=== PATIENT | male | born 1980 | race African-American/Black ===

== ENCOUNTER 2017-11-19 07:02 | Emergency (ER) | payer MEDICAID ==
[~2017-11-19] VITALS: Ht 177.8 cm; Wt 83.6 kg
[2017-11-19] MEDS ORDERED: DEXAMETHASONE 4 MG/ML, 5ML ONE (07:42)
[2017-11-19] MEDS ORDERED: DEXAMETHASONE 4 MG/ML, 1ML PO ONE (08:00)
[2017-11-19 08:27] LABS: BASOPHILS # (AUTO) 0.04 x10^3/uL (0-0.1); BASOPHILS % (AUTO) 1 % (0-1); EOSINOPHILS # (AUTO) 0.02 x10^3/uL (0-0.4); EOSINOPHILS % (AUTO) 0 % (1-7); LYMPHOCYTES # (AUTO) 1.49 x10^3/uL (1-3.4); LYMPHOCYTES % (AUTO) 20 % (22-44); MD NO; MEAN CORPUSCULAR HGB CONC 33.2 g/dL (33.2-36.2); MEAN CORPUSCULAR VOLUME 93.5 fL (81-97); MEAN PLATELET VOLUME 9.9 fL (7.4-10.4); MONOCYTES # (AUTO) 1.02 x10^3/uL (0.2-0.8); MONOCYTES % (AUTO) 13 % (2-9); NEUTROPHILS # (AUTO) 5.07 x10^3/uL (1.8-6.8); NEUTROPHILS % (AUTO) 66 % (42-75); PLATELET COUNT 175 x10^3/uL (130-400); RED BLOOD COUNT 4.86 x10^6/uL (4.38-5.82)
[2017-11-19 08:34] LABS: ALBUMIN 3.6 g/dL (3.4-5.0); ANION GAP 10 mmol/L (5-15); CALCIUM 9.4 mg/dL (8.5-10.1); CHLORIDE 105 mmol/L (98-107); CREATININE 1.21 mg/dL (0.7-1.3)
[2017-11-19 09:33] VITALS: BP 124/68
== END 2017-11-19 09:35 | disposition home or self-care (01) ==
LOC: ED 08:10
DX: J02.8 Acute pharyngitis due to other specified organisms (principal); F17.210 Nicotine dependence, cigarettes, uncomplicated
CPT/HCPCS: 36415; 70360; 80048; 82040; 85025; 99285; J1100